=== PATIENT | female | born 1955 | race African-American/Black ===

== ENCOUNTER 2022-04-21 16:08 | Emergency (ER) | payer MEDICAID, MEDICARE, OTHER ==
[~2022-04-21] VITALS: Ht 157.5 cm; Wt 84.0 kg
[~2022-04-21 16:08] MED LIST: ALBUTEROL INHALER; ARTHRITIS PILL; LORTAB; VERA200C4; WATER PILL
[2022-04-21 17:12] VITALS: BP 171/91
[2022-04-21] MEDS ORDERED: ACETAMINOPHEN 325MG TABLET PO ONE (18:30)
[2022-04-21] MEDS ORDERED: KETOROLAC 60MG/2ML VIAL IM ONE (18:30)
[2022-04-21] MEDS ORDERED: LIDOCAINE 5% PATCH TOP SCH (18:30)
[2022-04-21] MEDS ORDERED: METHOCARBAMOL 750MG TABLET PO SCH (18:30)
[2022-04-21] MEDS ORDERED: IBUP-2028 MT (19:24)
[2022-04-21] MEDS ORDERED: TOPUD PO (19:24)
[2022-04-21] MEDS ORDERED: METH-653 MT (19:24)
[2022-04-21] MEDS ORDERED: LIDO1ADH23 TP (19:24)
[2022-04-21] MEDS ORDERED: DEXAMETHASONE 10 MG/ML VIAL IM ONE (19:30)
== END 2022-04-21 19:42 | disposition home or self-care (01) ==
LOC: ER 16:08
DX: M47.896 Other spondylosis, lumbar region (principal); G89.29 Other chronic pain; M79.605 Pain in left leg; M79.604 Pain in right leg; I10 Essential (primary) hypertension
CPT/HCPCS: 96372; 99284; J1100; J1885

== ENCOUNTER 2022-04-26 11:46 | Inpatient (IN) | payer MEDICARE ==
[~2022-04-26] VITALS: Ht 157.5 cm; Wt 86.2 kg
[2022-04-26] MEDS: ALBUTEROL 6.7GM HFA INHALER ORI ONE ×2 (01:10→13:10)
[~2022-04-26 11:46] MED LIST changes: +IBUP-2028 MT; +LIDO1ADH23 TP; +METH-653 MT; +TOPUD PO
[2022-04-26] MEDS ORDERED: ACETAMINOPHEN 325MG TABLET PO STA (11:55)
[2022-04-26] MEDS ORDERED: AZITHROMYCIN 500MG/250ML 250 ML IV ONE (12:00)
[2022-04-26] MEDS ORDERED: CEFTRIAXONE 1 G PREMIX 50 ML IV ONE (12:00)
[2022-04-26] MEDS ORDERED: DEXAMETHASONE 10 MG/ML VIAL IV ONE (12:15)
[2022-04-26 13:28] LABS: HEMATOCRIT. 38.7 % (36.0-48.0); HEMOGLOBIN. 12.7 g/dL (12.0-16.0); MEAN CORPUSCULAR HEMOGLOBIN 29.5 pg (28.0-32.0); MEAN CORPUSCULAR VOLUME 89.7 fL (81.0-99.0); MEAN PLATELET VOLUME 10.7 fl (7.4-10.4); PLATELET 194 x1000/uL (130-400); RED BLOOD CELL COUNT 4.31 mill/uL (4.2-5.4); RED CELL DISTRIBUTION WIDTH 14.7 % (11.6-14.6)
[2022-04-26 13:33] LABS: CHLORIDE 104 mEq/L (98-107)
[2022-04-26 13:39] LABS: PROTHROMBIN TIME 10.6 sec (9.6-11.0)
[2022-04-26 13:50] LABS: CREATINE KINASE 41 IU/L (26-192)
[2022-04-26 13:51] LABS: CLARITY URINE CLEAR (CLEAR); COLOR URINE YELLOW (YELLOW); KETONES URINE TRACE (NEGATIVE); LEUKOCYTE ESTERASE URINE TRACE (NEGATIVE); NITRITE URINE NEGATIVE (NEGATIVE); OCCULT BLOOD URINE NEGATIVE (NEGATIVE); PROTEIN URINE 1+ (NEGATIVE); SPECIFIC GRAVITY URINE 1.023 (1.005-1.030)
[2022-04-26 14:16] LABS: PLATELET ESTIMATE NORMAL
[2022-04-26 19:38] VITALS: BP_SYST 137; BP_DIAS 78; BP_DIAS 84
[2022-04-26] MEDS ORDERED: OMEP40CA20 PO (21:48)
[2022-04-26] MEDS ORDERED: NIFE90TA60 PO (21:48)
[2022-04-26] MEDS ORDERED: HYDR25TA PO (21:48)
[2022-04-26] MEDS ORDERED: NALOXONE HCL 0.4MG/ML VIAL IV PRN (22:30)
[2022-04-26] MEDS: MORPHINE SULFATE 2 MG/ML CPJ (NOT FOR IM USE) IV PRN (22:40)
[2022-04-26] MEDS ORDERED: HYDROCODONE/ACETAMINOPHEN 5/325MG TABLET PO PRN (23:00)
[2022-04-26] MEDS ORDERED: ONDANSETRON HCL 4MG/2ML INJ IV PRN (23:00)
[2022-04-26] MEDS ORDERED: CEFTRIAXONE 1 G PREMIX 50 ML IV SCH (23:00)
[2022-04-26] MEDS ORDERED: ACETAMINOPHEN 650MG/20.3ML UDC GT PRN (23:00)
[2022-04-27] VITALS: BP 144/71
[2022-04-27 04:00] VITALS: BP 139/82
[2022-04-27] MEDS: MORPHINE SULFATE 2 MG/ML CPJ (NOT FOR IM USE) IV PRN ×2 (06:05→13:36)
[2022-04-27] MEDS: METHYLPREDNISOLONE SOD SUCC 125 MG/2 ML VIAL IV SCH ×2 (06:06→13:17)
[2022-04-27 08:00] VITALS: BP 151/97
[2022-04-27 08:04] LABS: BASOPHILS % 0.1 % (0.0-2.0); HEMATOCRIT. 38.6 % (36.0-48.0); HEMOGLOBIN. 12.7 g/dL (12.0-16.0); LYMPHOCYTES % 16.9 % (20.0-50.0); MEAN CORPUSCULAR HEMOGLOBIN 29.4 pg (28.0-32.0); MEAN CORPUSCULAR VOLUME 89.6 fL (81.0-99.0); MONOCYTES % 6.9 % (2.0-8.0); NEUTROPHILS % 76.1 % (40.0-76.0); PLATELET 201 x1000/uL (130-400); RED BLOOD CELL COUNT 4.31 mill/uL (4.2-5.4); RED CELL DISTRIBUTION WIDTH 14.4 % (11.6-14.6)
[2022-04-27 08:13] LABS: CHLORIDE 106 mEq/L (98-107)
[2022-04-27 08:17] LABS: PHOSPHORUS 2.6 mg/dL (2.5-4.9)
[2022-04-27 11:59] VITALS: BP 132/67
[2022-04-27] MEDS ORDERED: AZITHROMYCIN 500 MG in DEXT 5% WATER 250 ML IV SCH (13:30)
[2022-04-27] MEDS ORDERED: TUSSL MT (14:30)
[2022-04-27] MEDS ORDERED: CEFTRIAXONE 1,000 MG in DEXTROSE 5% WATER 50 ML IV SCH (15:00)
[2022-04-27 15:57] VITALS: BP 132/67
[2022-04-27 16:00] VITALS: BP 116/62
[2022-04-27] MEDS ORDERED: DEX6 MT (16:39)
== END 2022-04-27 18:45 | disposition home or self-care (01) | DRG 177 ==
LOC: ER 12:16 → 7WST 12:59 → ENRESERV 18:06
PROVIDERS: ADMIT Internal Medicine Nephrology; ATTEND Internal Medicine Nephrology
DX: U07.1 COVID-19 (principal); J96.00 Acute respiratory failure, unspecified whether with hypoxia or hypercapnia; E44.1 Mild protein-calorie malnutrition; M19.90 Unspecified osteoarthritis, unspecified site; E66.9 Obesity, unspecified; E78.5 Hyperlipidemia, unspecified; J45.909 Unspecified asthma, uncomplicated; J20.8 Acute bronchitis due to other specified organisms; Z79.1 Long term (current) use of non-steroidal anti-inflammatories (NSAID); Z79.899 Other long term (current) drug therapy; Z68.34 Body mass index [BMI] 34.0-34.9, adult
CPT/HCPCS: 36415; 71045; 80048; 80053; 81003; 82550; 82728; 83605; 83615; 83735; 83880; 84100; 84145; 84484; 85025; 85384; 86140; 87426; 93005; 99291; C9803; J0456; J0696; J1100; J2270; J2930; J7060